=== PATIENT | female | born 1970 | race Caucasian/White ===

== ENCOUNTER 2017-05-25 11:47 | Emergency (ER) | payer BC ==
[~2017-05-25] VITALS: Ht 162.6 cm; Wt 75.7 kg
[~2017-05-25 11:47] MED LIST: IBUPROFEN600 MG ORAL; PROMETHAZINE-C118 M1 ORAL; ZYRTEC10 MG ORAL
[2017-05-25] MEDS ORDERED: NKM (11:55)
--- NOTE | 2017-05-25 12:02 | Emergency Room Report ---
History of Present Illness General Chief Complaint: Eye Problems Source: Patient Present Illness HPI Patient is a 47-year-old female who presents today with complaints of right eye itching and redness that began 3 days ago. She states she woke up this morning with her I glued shut and has had copious discharge from the right eye. She denies any foreign body sensation or changes in vision. Patient also states she had vitamin B 12 injection in her abdomen 2 days ago and she has had a slight redness and itching at the site fence. Denies any difficulty breathing, palpitations or associated symptoms. Allergies: Coded Allergies: No Known Allergies (Unverified , 05/19/16) Patient History Last Menstrual Period: Post Reviewed Nursing Documentation: PMH: Agreed, PSxH: Agreed Nursing Documentation-PMH Past Medical History: No Stated History Review of Systems Eye: Reports: other - redness and itching Skin: Reports: rash All Other Systems: negative except mentioned in HPI Physical Exam Vital Signs Date Time Temp Pulse Resp B/P (MAP) Pulse Ox O2 Delivery O2 Flow Rate FiO2 05/25/17 11:51 98.1 94 17 122/85 97 Room Air Sp02 EP Interpretation: reviewed, normal General Appearance: no apparent distress, alert, GCS 15, non-toxic Head: normocephalic, atraumatic Eyes: right eye other - conjunctival redness and purulent discharge, left eye normal inspection, bilateral eye PERRL ENT: hearing grossly normal, normal pharynx, no angioedema, normal voice Neck: full range of motion, supple/symm/no masses Respiratory: chest non-tender, lungs clear, normal breath sounds, speaking full sentences Cardiovascular #1: regular rate, rhythm, no edema Cardiovascular #2: 2+ carotid (R), 2+ carotid (L), 2+ radial (R), 2+ radial (L) , 2+ dorsalis pedis (R), 2+ dorsalis pedis (L) Gastrointestinal: normal bowel sounds, non tender, soft, non-distended, no guarding, no rebound Rectal: deferred Genitourinary: normal inspection, no CVA tenderness Musculoskeletal: back normal, gait/station normal, normal range of motion, non- tender, calf tenderness Neurologic: alert, oriented x3, responsive, motor strength/tone normal, sensory intact, speech normal Psychiatric: judgement/insight normal, memory normal, mood/affect normal, no suicidal/homicidal ideation Reflexes: 3+ bicep (R), 3+ bicep (L), 3+ tricep (R), 3+ tricep (L), 3+ knee (R) , 3+ knee (L) Skin: normal color, no rash, warm/dry, well hydrated Lymphatic: no adenopathy Medical Decision Making PA Attestation Supervising physician is Dr. Wright ER Course Patient present today with complaints of right eye and redness and itching consistent with bacterial conjunctivitis. Patient is discharged home with antibiotic eyedrops and instructed to follow up with PCP for reevaluation. No evidence of foreign body and patient denies foreign body sensation or pain. Low index of suspicion for acute angle closure glaucoma. She is also found to have a local allergic reaction, instructed to use hydrocortisone cream and Benadryl as needed. Many for systemic steroids at this time. No evidence of systemic allergic reaction. Last Vital Signs Date Time Temp Pulse Resp B/P (MAP) Pulse Ox O2 Delivery O2 Flow Rate FiO2 05/25/17 11:51 98.1 94 17 122/85 97 Room Air Status: improved Disposition: HOME, SELF-CARE Condition: Stable Scripts Polymyxin/Trimethoprim (Polytrim Eye Drops) 10 Ml Drops 1 DROP BOTH EYES Q4H, #10 ML Prov: Elisha Atkinson 05/25/17 Elisha Atkinson May 25, 2017 12:02
[2017-05-25] MEDS ORDERED: POLYTRIM OP SOL10 ML BOTH EYES (12:09)
[2017-05-25 12:15] VITALS: BP 119/82
== END 2017-05-25 12:18 | disposition home or self-care (01) ==
LOC: EMR 12:05
DX: H57.8 Other specified disorders of eye and adnexa (principal)
CPT/HCPCS: 99283

== ENCOUNTER 2017-08-14 13:33 | Emergency (ER) | payer BC ==
[~2017-08-14] VITALS: Ht 162.6 cm; Wt 77.1 kg
[~2017-08-14 13:33] MED LIST changes: +NKM; +POLYTRIM OP SOL10 ML BOTH EYES
[2017-08-14 13:55] VITALS: BP 138/92
--- NOTE | 2017-08-14 14:29 | Emergency Room Report ---
History of Present Illness General Chief Complaint: Upper Respiratory Illness Source: EMS Present Illness HPI 47-year-old female presents emergency department complaining of chronic productive cough x4 weeks with associated chills. Patient denies fevers she denies history of asthma or COPD. Patient denies smoking history. Patient states illness onset was approximately around Thanksgiving. Patient's issues tried numerous qfzn-aqr-blfgujg medications for her symptoms with no relief. Denies neck pain or stiffness, denies LE swelling. Denies CP, Palpitations, LOC , AMS, dizziness, Changes in Vision, Sensation, paresthesias, or a sudden severe headache. Allergies: Coded Allergies: No Known Allergies (Unverified , 05/19/16) Patient History Past Medical History: see triage record Past Surgical History: none Pertinent Family History: none Now: No Reviewed Nursing Documentation: PMH: Agreed, PSxH: Agreed Nursing Documentation-PMH Past Medical History: No Stated History Review of Systems All Other Systems: negative except mentioned in HPI Physical Exam Vital Signs Date Time Temp Pulse Resp B/P (MAP) Pulse Ox O2 Delivery O2 Flow Rate FiO2 08/14/17 13:51 98.1 83 22 140/93 99 Room Air Sp02 EP Interpretation: reviewed, normal General Appearance: no apparent distress, alert, GCS 15, non-toxic Head: normocephalic, atraumatic ENT: hearing grossly normal, normal pharynx, no angioedema, normal voice Neck: full range of motion, no meningismus, no bony tend Respiratory: lungs clear, normal breath sounds, speaking full sentences, wheezing - scant Cardiovascular #1: regular rate, rhythm, no edema, normal capillary refill Musculoskeletal: back normal, gait/station normal, normal range of motion, non- tender Neurologic: alert, oriented x3, responsive, motor strength/tone normal, sensory intact, normal gait, speech normal Skin: normal color, no rash, warm/dry, well hydrated Lymphatic: no adenopathy Medical Decision Making PA Attestation Dr. jeronimo is my supervising Physician whom patient management has been discussed with. Diagnostic Impression: Primary Impression: Atypical pneumonia ER Course 47-year-old female presents emergency department complaining of chronic productive cough x4 weeks with associated chills. Patient denies fevers she denies history of asthma or COPD. Patient denies smoking history. Patient states illness onset was approximately around Thanksgiving. Patient's issues tried numerous ttrp-jft-dvbuocj medications for her symptoms with no relief. Denies neck pain or stiffness, denies LE swelling. Denies CP, Palpitations, LOC , AMS, dizziness, Changes in Vision, Sensation, paresthesias, or a sudden severe headache. Ddx considered but are not limited to URI, pneumonia, PE, strep pharyngitis, meningitis. Vital signs: Pt.is afebrile VS are WNL H&PE are most consistent with bronchitis ORDERS: -CXR: Unremarkable ED INTERVENTIONS: None required at this time. DISCHARGE: At this time pt. is stable for d/c to home. Will provide printed patient care instructions, and any necessary prescriptions. Care plan and follow up instructions have been discussed with the patient prior to discharge. Chest X-Ray Diagnostic Results Chest X-Ray Diagnostic Results : Chest X-Ray Ordered: Yes # of Views/Limited/Complete: 1 View EP Interpretation: Yes PA Xray: Interpretation reviewed, by supervising MD, and agrees with findings. Interpretation: no consolidation, no effusion, no pneumothorax, no acute cardiopulmonary disease Impression: No acute disease Electronically Signed by: Calista Hay PA-C Last Vital Signs Date Time Temp Pulse Resp B/P (MAP) Pulse Ox O2 Delivery O2 Flow Rate FiO2 08/14/17 13:51 98.1 83 22 140/93 99 Room Air Disposition: HOME, SELF-CARE Condition: Stable Scripts Guaifenesin (Guaifenesin) 1,200 Mg Tab.er.12h 1200 MG PO BID, #20 TAB Prov: Calista Hay.Bipin 08/14/17 Albuterol Sulfate* (ALBUTEROL SULFATE MDI*) 8.5 Gm Hfa.aer.ad 2 PUFF INH Q3H, #1 INH 0 Refills Prov: Calista Hay.A. 08/14/17 Azithromycin* (ZITHROMAX*) 250 Mg Tablet 250 MG ORAL DAILY, #6 TAB 0 Refills Take two tables once daily for 1 day, then one tablet once daily for 4 days. Prov: Calista Hay.AJace 08/14/17 Codeine/Promethazine Hcl* (PROMETHAZINE-CODEINE SYRUP*) 118 Ml Syrup 5 ML ORAL Q6H Y for For Cough, #120 ML 0 Refills Prov: Calista Hay 08/14/17 Patient Instructions: Upper Respiratory Infection, Adult Additional Instructions: Take medications as directed. Follow up with a Primary Care Provider in 3-5 days, even if your symptoms have resolved. --Please review list of primary care clinics, if you do not already have a primary care provider Return sooner to ED if new symptoms occur, or current symptoms become worse. Do not drink alcohol, drive, or operate heavy machinery while taking Cough Syrup as this may cause drowsiness. - Please note that this Emergency Department Report was dictated using [employer] gear cutter technology software, occasionally this can lead to erroneous entry secondary to interpretation by the dictation equipment. Calista Hay Aug 14, 2017 14:29
[2017-08-14] MEDS ORDERED: GUAIFENESIN1200 MG PO (15:00)
[2017-08-14] MEDS ORDERED: ZITHROMAX250 MG ORAL (15:00)
[2017-08-14] MEDS ORDERED: ALBUTEROL SULF8.5 GM INH (15:00)
[2017-08-14] MEDS ORDERED: PROMETHAZINE-C118 M1 ORAL (15:00)
[2017-08-14 15:14] VITALS: BP 134/88
--- NOTE | 2017-08-15 05:02 | Diagnostic Imaging Report ---
Indication: Chest pain Technique: One view of the chest Comparison: none Findings: Lungs and pleural spaces are clear. Heart size is normal. Band of atelectasis or scar is seen in the left midlung Impression: No acute process
== END 2017-08-14 15:14 | disposition home or self-care (01) ==
LOC: EMR 13:55
DX: J18.9 Pneumonia, unspecified organism (principal)
CPT/HCPCS: 71010; 99284

== ENCOUNTER 2019-07-09 08:03 | Emergency (ER) | payer BC, OTHER ==
[~2019-07-09] VITALS: Ht 162.6 cm; Wt 77.1 kg
[~2019-07-09 08:03] MED LIST changes: +ALBUTEROL SULF8.5 GM INH; +GUAIFENESIN1200 MG PO; +ZITHROMAX250 MG ORAL
--- NOTE | 2019-07-09 08:17 | NUR ---
ED Nurse Note: pt walked in c/o rt foot swelling and pain . Pt states she fell at work. CLEMENTE evans done awaiting orders.
--- NOTE | 2019-07-09 08:26 | Emergency Room Report ---
History of Present Illness General Chief Complaint: Lower Extremity Injury Source: Patient Present Illness HPI Patient twisted her foot wearing high heels at work 2 days ago. She had continued swelling and pain there. The pain is relieved by elevating it. She tried taking Tylenol the first day. This was helpful. She denies any numbness or weakness. She is unable to weight-bear because of pain in the foot. She rates the pain 9/10, aching and worse when she weight bears does not radiate. No pain in the ankle. She is menopausal. She denies any other medical problems at this time. 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 Period: menopause Reviewed Nursing Documentation: PMH: Agreed; PSxH: Agreed Nursing Documentation-PMH Past Medical History: No Stated History Review of Systems Genitourinary: Reports: see HPI Musculoskeletal: Reports: see HPI Skin: Denies: rash Neurological: Reports: see HPI Physical Exam Vital Signs Date Time Temp Pulse Resp B/P (MAP) Pulse Ox O2 Delivery O2 Flow Rate FiO2 07/09/19 08:05 97.9 93 18 141/96 (111) 96 Room Air Sp02 EP Interpretation: reviewed, normal General Appearance: well appearing, no apparent distress, GCS 15 Head: normocephalic Eyes: bilateral eye normal inspection, bilateral eye PERRL, bilateral eye EOMI ENT: moist mucus membranes Cardiovascular #1: regular rate, rhythm Cardiovascular #2: 2+ radial (R), 2+ dorsalis pedis (R) - Capillary fill Gastrointestinal: normal inspection Musculoskeletal: no calf tenderness, swelling - Dorsum of right foot, other - Ankle ligaments stable and nontender, tenderness - Point tenderness proximal fifth metatarsal Neurologic: alert, oriented x3, distal neuro normal Psychiatric: mood/affect normal Skin: normal color, other - Slight discoloration dorsum right foot Medical Decision Making Diagnostic Impression: Primary Impression: Fracture of fifth metatarsal bone Qualified Codes: S92.354A - Nondisplaced fracture of fifth metatarsal bone, right foot, initial encounter for closed fracture ER Course Patient presents with right foot pain post twisting 2 days ago. Based on [place] ankle rules high suspicion for fifth metatarsal fracture. Other considerations sprain of the foot. Ankle appears stable. Ibuprofen and x-rays indicated. X-ray with fracture proximal fifth metatarsal. Wilbret applied by me and Ortho boot. Tension and position excellent. Improvement with Wilbert. Distal neurovascular checked by me and normal. Discussed treatment plan with patient. Also discussed the need for follow-up. Patient stable for outpatient observation and treatment. Other X-Ray Diagnostic Results Other X-Ray Diagnostic Results : X-Ray ordered: R foot # of Views/Limited Vs Complete: 3 View Indication: Other EP Interpretation: Yes Interpretation: no dislocation, other - STS and fx Impression: Other Electronically Signed by: Electronically signed by Cirilo Lan MD Last Vital Signs Date Time Temp Pulse Resp B/P (MAP) Pulse Ox O2 Delivery O2 Flow Rate FiO2 07/09/19 09:09 97.8 18 141/96 96 Room Air 07/09/19 08:05 93 Status: improved Disposition: HOME, SELF-CARE Condition: Improved Scripts Ibuprofen* (MOTRIN*) 600 Mg Tablet 600 MG ORAL Q6H PRN for For Pain, #16 TAB 0 Refills Prov: Cirilo Lan MD 07/09/19 Cirilo Lan MD Jul 09, 2019 08:25
[2019-07-09] MEDS ORDERED: IBUPROFEN600 MG ORAL (08:50)
[2019-07-09 09:09] VITALS: BP 141/96
--- NOTE | 2019-07-09 09:11 | NUR ---
ED Nurse Note: mary evdimas done imaging done pt medicated . RT foot sana wraped by mary . Pt provided with post op show and crutches. Crutch gait teaching done by survey cad technician.
--- NOTE | 2019-07-09 09:12 | NUR ---
ED Nurse Note: Pt cleared by health care Provider for discharge. DC instructions/prescription was given and explained to pt and verbalized understanding of teachings. All medical deviecs such as ID band removed. Pt is AAO x4, ambulatory and left with all personal belongings.
--- NOTE | 2019-07-09 10:53 | Diagnostic Imaging Report ---
Indication: Trauma, status post fall Technique: 3 views right foot Comparison: none Findings: Is a transverse nondisplaced fracture of the base of the fifth metatarsal. No other acute fractures. No dislocations. Joint spaces are preserved. Impression: Positive for nondisplaced fifth metatarsal fracture This agrees with the preliminary interpretation reported by the emergency room physician in the electronic medical record
== END 2019-07-09 09:13 | disposition home or self-care (01) ==
LOC: EMR 08:26
DX: S92.354A Nondisplaced fracture of fifth metatarsal bone, right foot, initial encounter for closed fracture (principal); X50.1XXA Overexertion from prolonged static or awkward postures, initial encounter; Y93.9 Activity, unspecified; Y92.9 Unspecified place or not applicable
CPT/HCPCS: 99283